=== PATIENT | female | born 1975 | race Caucasian/White ===

== ENCOUNTER 2024-04-22 10:04 | Emergency (ER) | payer BC ==
[2024-04-22] MEDS ORDERED: NA CHLORIDE 0.9% 1,000 ML ONE ×2 (10:35→12:15)
[2024-04-22] MEDS ORDERED: ONDANSETRON 4 MG/2 ML VIAL ONE (10:35)
[2024-04-22 10:54] LABS: Specific Gravity 1.028 (1.005-1.030); Urine Bacteria None Seen /HPF (<20); Urine Bilirubin NEGATIVE (Negative); Urine Blood 2+ (Negative); Urine Clarity Turbid (Clear); Urine Color Light-Yellow (Yellow); Urine Culture Reflex Order NOT NEEDED; Urine Glucose NEGATIVE (Negative); Urine Ketones 1+ (Negative); Urine Microscopic Reflex YN ORDER UMIC; Urine Nitrite NEGATIVE (Negative); Urine Protein 1+ (Negative); Urine Urobilinogen Normal (Normal); Urine WBC <5 /HPF (<5)
[2024-04-22] MEDS ORDERED: MORPHINE 4 MG/ML SYR ONE (10:55)
[2024-04-22 10:59] LABS: Absolute Lymphocytes (CBC) 1.1 K/uL (0.7-4.9); Absolute Monocytes 0.9 K/uL (0.1-1.3); Absolute Neutrophil 9.1 K/uL (1.8-8.0); Basophils % 0.3 % (0-1.3); Eosinophils % 0.2 % (0-4.4); Hematocrit 44.3 % (36.0-45.0); Hemoglobin 14.6 g/dL (12.0-15.0); MCH 30.5 pg (27.0-35.0); MCV 92.3 fL (80-100); MPV 7.4 fL (7.6-11.3); Monocytes % 8.4 % (3.3-12.3); Neutrophils % 81.1 % (41.7-73.7); Nucleated Red Blood Cells % 0.1 % (0-0); Platelets 486 thou/uL (152-406); Red Cell Distribution Width 14.4 % (12.1-15.2)
[2024-04-22 11:17] LABS: Albumin/Globulin Ratio 0.9 (1.1-1.8); Anion Gap 10.4 mEq/L (5.0-15.0); Bilirubin Total 0.5 mg/dL (0.2-1.0); Globulin 4.4 g/dL (2.3-3.5); Potassium 3.4 mEq/L (3.5-5.1); Protein, Total 8.4 g/dL (6.4-8.2)
--- NOTE | 2024-04-22 11:20 | RAD REPORT ---
EXAMINATION: CT ABDOMEN AND PELVIS WITHOUT CONTRAST CLINICAL INDICATION: abd pain, recent kidney donation TECHNIQUE: CT abdomen and pelvis was performed, without IV contrast, as per department protocol. Axia l, sagittal and coronal reconstructions were obtained. One or more of the following dose reduction techniques were used: Automated exposure control, adjustment of the mA and kV according to the patien t size, and iterative reconstruction. Unless otherwise specified, incidental findings do not require dedicated imaging follow-up. COMPARISON: No prior exam. FINDINGS: The lack of intravenous contrast limits the sensitivity of this exam for evaluation of solid visceral organs, vascular structures, and retroperitoneum. LOWER CHEST: The visualized lung bases are clear. LIVER:Normal in size and contour. No focal lesion. Grossly unremarkable gallbladder. SPLEEN: Normal size. No focal lesion. PANCREAS: No mass, ductal dilation, or luis-pancreatic fluid. ADRENALS: Normal; no mass. KIDNEYS AND URETERS: Normal size and contour right kidney. No hydronephrosis. Postsurgical changes le ft nephrectomy. URINARY BLADDER: Normal contour. GASTROINTESTINAL TRACT: No evidence of bowel obstruction, significant free fluid, free air or abscess . APPENDIX: Appendix not visualized, but no inflammatory changes in region of appendix. LYMPH NODES: No lymphadenopathy. MUSCULOSKELETAL: No acute or suspicious osseous abnormality. ADDITIONAL FINDINGS: None. IMPRESSION: No acute or concerning abnormalities in the abdomen or pelvis, with evaluation limited by lack of IV contrast.
[2024-04-22] MEDS ORDERED: PROMETHAZINE INJ 25 MG/ML AMP ONE ×2 (11:39→13:38)
--- NOTE | 2024-04-22 13:47 | EDPHYS ---
Physician Documentation [facility] Name: Rea Hinojosa Age: 49 yrs Sex: Female : 1975 Arrival Date: 04/22/2024 Time: 10:04 Bed 7 Private MD: ED Physician Rajinder Bedoya HPI: 04/22 10:58 This 49 yrs old Female presents to ER via Ambulatory with complaints of Abdominal Pain, rn Vomiting, Dehydrated. 10:58 The patient presents to the emergency department with nausea, vomiting, abdominal pain. rn 10:59 Onset: The symptoms/episode began/occurred 5 day(s) ago. Possible causes: unknown. The rn symptoms are aggravated by nothing. The symptoms are alleviated by nothing. Associated signs and symptoms: Pertinent positives: nausea, vomiting, Pertinent negatives: fever, GI bleeding. Severity of symptoms: At their worst the symptoms were moderate in the emergency department the symptoms are unchanged. The patient has experienced similar episodes in the past. Patient reports lower and left-sided abdominal cramping associated with nausea and vomiting. States just recently had a kidney donation surgery, was doing okay then restarted her Mounjaro. After restarting Mounjaro started having nausea and vomiting with cramping and not able to keep anything down. Patient states this has happened before when she increased her dose of Mounjaro in the past and had to come to the emergency room. No blood in urine or stool. No fever or chills. No known sick contacts.. 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 - Infectious Disease History:: Denies. - Social history:: Smoking status: Patient denies any tobacco usage or history of. - Family history:: not pertinent. - Hospitalizations: : No recent hospitalization is reported. ROS: 10:59 Constitutional: Negative for fever, chills, and weight loss, Cardiovascular: Negative rn for chest pain, palpitations, and edema, Respiratory: Negative for shortness of breath, cough, wheezing, and pleuritic chest pain, Abdomen/GI: Positive for abdominal pain with nausea and vomiting MS/Extremity: Negative for injury and deformity, Skin: Negative for injury, rash, and discoloration, Neuro: Positive for generalized weakness Exam: 10:59 Constitutional: This is a well developed, well nourished patient who is awake, alert, rn and in no acute distress. ENT: Dry mucous membranes Cardiovascular: Regular rate and rhythm. No pulse deficits. Respiratory: No increased work of breathing, no retractions or nasal flaring. Abdomen/GI: Soft, mild left lower quadrant and suprapubic tenderness. No rebound or guarding. No distention Neuro: Awake and alert, GCS 15 Vital Signs: 10:17 BP 150 / 108; Pulse 94; Resp 15; Temp 98.5; Pulse Ox 99% ; Weight 62.6 kg; Height 5 ft. jl7 4 in. ; Pain 5/10; 10:17 Body Mass Index 23.69 (62.60 kg, 162.56 cm) jl7 10:17 Pain Scale: Adult jl7 MDM: 10:06 Medical Screening Exam initiated rn 13:45 Differential diagnosis: Nonspecific abd pain, gastritis, pancreatitis, diverticulitis, rn viral gastroenteritis, gastroenteritis, Adverse effect of Mounjaro. Data reviewed: vital signs, nurses notes, lab test result(s), radiologic studies, CT scan, and as a result, I will discharge patient. Counseling: I had a detailed discussion with the patient and/or guardian regarding the historical points, exam findings, and any diagnostic results supporting the discharge/admit diagnosis, lab results, radiology results, the need for outpatient follow up, to return to the emergency department if symptoms worsen or persist or if there are any questions or concerns that arise at home. Response to treatment: the patient's symptoms have markedly improved after treatment, and as a result, I will discharge patient. Special discussion: I discussed with the patient/guardian in detail that at this point there is no indication for admission to the hospital. It is understood, however, that if the symptoms persist or worsen the patient needs to return immediately for re-evaluation. ED course: No acute findings and workup. CT abdomen pelvis without acute findings. Patient feels much better. Possibly side effects of Mounjaro. Recommend cessation and talking to her doctor for further care.. 04/22 10:19 Order name: CBC with Diff; Complete Time: 11:24 rn 04/22 10:19 Order name: CMP; Complete Time: 11:24 rn 04/22 10:19 Order name: Lipase; Complete Time: 11:24 rn 04/22 10:19 Order name: Urinalysis w/ reflexes; Complete Time: 11:24 rn 04/22 10:42 Order name: Flu rn 04/22 10:42 Order name: CT Abd/Pelvis - Without Contrast; Complete Time: 11:24 rn 04/22 10:19 Order name: IV Saline Lock; Complete Time: 10:49 rn 04/22 10:19 Order name: Labs collected and sent; Complete Time: 10:49 rn Administered Medications: 10:50 Drug: Ondansetron IVP 4 mg IVP once; over 2 minutes Route: IVP; Site: left antecubital; ko1 11:05 Follow up: Response: No adverse reaction ko1 10:50 Drug: NS 0.9% IV 1000 ml IV at 1 bolus Per protocol; to be given as a bolus over 60 ko1 minutes Route: IV; Rate: 1 bolus; Site: left antecubital; 10:55 Drug: morphine IVP or IV 4 mg IVP once over 4 mins Route: IVP; Infused Over: 4 mins; ko1 Site: left antecubital; 11:10 Follow up: Response: No adverse reaction ko1 11:43 Drug: Promethazine IVP 12.5 mg IVP once Route: IVP; Site: left antecubital; ko1 11:58 Follow up: Response: No adverse reaction jl7 12:17 Drug: NS 0.9% IV 1000 ml IV at 1000 ml once; to be given as a bolus over 60 minutes hb Route: IV; Rate: 1000 ml; Site: left antecubital; 13:45 Drug: Promethazine IVP 12.5 mg IVP once Route: IVP; Site: left antecubital; hb Disposition Summary: 04/22/24 13:47 Discharge Ordered Notes: Location: Home rn Problem: new rn Symptoms: have improved rn Condition: Stable rn Diagnosis - Vomiting rn - Dehydration rn Followup: rn - With: Private Physician - When: As needed - Reason: Recheck today's complaints, Re-evaluation by your physician Discharge Instructions: - Discharge Summary Sheet rn - Dehydration, Adult rn - Vomiting, Adult rn Forms: - Medication Reconciliation Form rn - 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 EDMS EDMS 10:42 10:42 Abdomen Pelvis Wo Con+CT.RAD.BRZ ordered. EDMS EDMS
--- NOTE | 2024-04-22 13:47 | ER ---
Nurse's Notes [facility] Name: Rea Hinojosa Age: 49 yrs Sex: Female : 1975 Arrival Date: 04/22/2024 Time: 10:04 Bed 7 Private MD: Diagnosis: Vomiting;Dehydration Presentation: 04/22 10:17 Chief complaint: Patient states: Epigastric and lower abd pain; N/V and ZIMMER x 5 days. jl7 Started Mounjaro 5 days ago, donated Left kidney on 04/01/24. Coronavirus screen: At this time, the client does not indicate any symptoms associated with coronavirus-19. Ebola Screen: No symptoms or risks identified at this time. Initial Sepsis Screen: Does the patient meet any 2 criteria? No. Patient's initial sepsis screen is negative. Does the patient have a suspected source of infection? No. Patient's initial sepsis screen is negative. Risk Assessment: Do you want to hurt yourself or someone else? Patient reports no desire to harm self or others. Onset of symptoms was April 18, 2024. 10:17 Method Of Arrival: Ambulatory [facility] 10:17 Acuity: SHERMAN 3 jl7 Triage Assessment: 10:19 General: Appears in no apparent distress. uncomfortable, ill, Behavior is calm, jl7 cooperative, appropriate for age. Pain: Complains of pain in epigastric area, right lower quadrant and left lower quadrant Pain currently is 5 out of 10 on a pain scale. GI: Reports nausea, vomiting. 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 - Infectious Disease History:: Denies. - Social history:: Smoking status: Patient denies any tobacco usage or history of. - Family history:: not pertinent. - Hospitalizations: : No recent hospitalization is reported. Screenin:25 [facility] ED Fall Risk Assessment (Adult) History of falling in the last 3 months, ko1 including since admission No falls in past 3 months (0 pts) Confusion or Disorientation No (0 pts) Intoxicated or Sedated No (0 pts) Impaired Gait No (0 pts) Mobility Assist Device Used No (0 pt) Altered Elimination No (0 pt) Score/Fall Risk Level 0 - 2 = Low Risk Oriented to surroundings, Maintained a safe environment, Educated pt \T\ family on fall prevention, incl call for assistance when getting out of bed, Assessed \T\ reinforced patient's understanding of fall precautions, Hourly rounding (assess needs \T\ fall precautionary measures) done. Abuse screen: Denies threats or abuse. Denies injuries from another. Nutritional screening: No deficits noted. Tuberculosis screening: No symptoms or risk factors identified. Assessment: 10:25 General: Appears uncomfortable, ill, Behavior is calm, cooperative, appropriate for ko1 age. Pain: Complains of pain in epigastric area. Neuro: No deficits noted. Cardiovascular: No deficits noted. Respiratory: No deficits noted. GI: Bowel sounds present X 4 quads. Abd is soft and non tender X 4 quads. GI: Reports upper abdominal pain, nausea, vomiting. : No deficits noted. No signs and/or symptoms were reported regarding the genitourinary system. EENT: No deficits noted. No signs and/or symptoms were reported regarding the EENT system. Derm: No deficits noted. No signs and/or symptoms reported regarding the dermatologic system. Musculoskeletal: No deficits noted. No signs and/or symptoms reported regarding the musculoskeletal system. 13:40 Reassessment: Patient appears in no apparent distress at this time. Patient is hb alert/active/playful, equal unlabored respirations, skin warm/dry/pink. Patient states feeling better. Patient states symptoms have improved. Vital Signs: 10:17 BP 150 / 108; Pulse 94; Resp 15; Temp 98.5; Pulse Ox 99% ; Weight 62.6 kg; Height 5 ft. jl7 4 in. ; Pain 5/10; 10:17 Body Mass Index 23.69 (62.60 kg, 162.56 cm) jl7 10:17 Pain Scale: Adult jl7 ED Course: 10:06 Patient arrived in ED. mr 10:06 Rajinder Bedoya MD is Attending Physician. rn 10:19 Triage completed. jl7 10:19 Arm band placed on right wrist. jl7 10:25 Patient has correct armband on for positive identification. Allergy band placed. Bed in ko1 low position. Call light in reach. Side rails up X 1. Provided Education on: lab. Pulse ox on. NIBP on. Door closed. Noise minimized. Lights dimmed. Warm blanket given. Pillow given. Assisted to bathroom. 10:27 Gilma Pool, RN is Primary Nurse. ko1 10:41 Urinalysis w/ reflexes Sent. ko1 10:41 Urine collected: clean catch specimen, clear. ko1 10:49 CBC with Diff Sent. ko1 10:49 CMP Sent. ko1 10:50 Lipase Sent. ko1 10:50 No provider procedures requiring assistance completed. Initial lab(s) drawn, by me, ko1 sent to lab. Flu and/or RSV swab sent to lab. Inserted saline lock: 20 gauge in left antecubital area, using aseptic technique. Blood collected. Flushed with 10 mL NS. 11:14 CT Abd/Pelvis - Without Contrast In Process Unspecified. EDMS Administered Medications: 10:50 Drug: Ondansetron IVP 4 mg IVP once; over 2 minutes Route: IVP; Site: left antecubital; ko1 11:05 Follow up: Response: No adverse reaction ko1 10:50 Drug: NS 0.9% IV 1000 ml IV at 1 bolus Per protocol; to be given as a bolus over 60 ko1 minutes Route: IV; Rate: 1 bolus; Site: left antecubital; 10:55 Drug: morphine IVP or IV 4 mg IVP once over 4 mins Route: IVP; Infused Over: 4 mins; ko1 Site: left antecubital; 11:10 Follow up: Response: No adverse reaction ko1 11:43 Drug: Promethazine IVP 12.5 mg IVP once Route: IVP; Site: left antecubital; ko1 11:58 Follow up: Response: No adverse reaction jl7 12:17 Drug: NS 0.9% IV 1000 ml IV at 1000 ml once; to be given as a bolus over 60 minutes hb Route: IV; Rate: 1000 ml; Site: left antecubital; 13:45 Drug: Promethazine IVP 12.5 mg IVP once Route: IVP; Site: left antecubital; hb Medication: 10:25 VIS not applicable for this client. ko1 Outcome: 13:47 Discharge ordered by . rn 14:01 Patient left the ED. Signatures: Dispatcher [employer] EDMS Carmenza Brice Reg Reg mr Rajinder Bedoya MD MD rn Baxter, Heather, RN RN Tony Noble RN RN jl7 Gilma Pool RN RN ko1
[2024-04-22 16:06] VITALS: BP 150/108; TEMP 98.5; O2SAT 99
== END 2024-04-22 14:01 | disposition home or self-care (01) ==
LOC: ER 10:04
DX: R11.2 Nausea with vomiting, unspecified (principal); E86.0 Dehydration; R10.9 Unspecified abdominal pain; E03.9 Hypothyroidism, unspecified; I10 Essential (primary) hypertension
CPT/HCPCS: 85025; 81001; 36415; 83690; 80053; 87804 ×2; 74176; 96375; 96374; 99284; J2550 ×2; J2405; J7030 ×2

== ENCOUNTER 2024-06-28 10:48 | Day surgery (SDC) | payer BC ==
[2024-06-27 14:39] LABS: Specific Gravity 1.012 (1.005-1.030)
[2024-06-27 14:41] LABS: Absolute Eosinophils 0.2 K/uL (0-0.5); Absolute Lymphocytes (CBC) 2.4 K/uL (0.7-4.9); Absolute Monocytes 0.9 K/uL (0.1-1.3); Absolute Neutrophil 4.7 K/uL (1.8-8.0); Basophils % 0.6 % (0-1.3); Eosinophils % 2.6 % (0-4.4); Hematocrit 43.4 % (36.0-45.0); Hemoglobin 14.5 g/dL (12.0-15.0); MCH 31.3 pg (27.0-35.0); MCHC 33.4 g/dL (32.0-36.0); MCV 93.5 fL (80-100); MPV 7.8 fL (7.6-11.3); Monocytes % 10.6 % (3.3-12.3); Neutrophils % 57.2 % (41.7-73.7); Nucleated Red Blood Cells % 0.1 % (0-0); Platelets 406 thou/uL (152-406); RBC Red Blood Cell Count 4.64 M/uL (3.86-4.86); Red Cell Distribution Width 14.4 % (12.1-15.2)
[2024-06-27 15:01] LABS: Anion Gap 7.2 mEq/L (5.0-15.0); Potassium 3.2 mEq/L (3.5-5.1)
[2024-06-28] MEDS ORDERED: Ringers Lactate 1,000 ML IV ONE (10:50)
[2024-06-28] MEDS ORDERED: MIDAZOLAM HCL 2 MG/2 ML INJ ONE (13:15)
[2024-06-28] MEDS: CEFAZOLIN SODIUM 2 GM/VIAL ONE (13:24)
[2024-06-28] MEDS: Ringers Lactate 1,000 ML IV ONE (13:24)
[2024-06-28] MEDS ORDERED: LIDOCAINE 2% MPF 5 ML VIAL ONE (13:26)
[2024-06-28] MEDS ORDERED: ONDANSETRON 4 MG/2 ML VIAL ONE (13:26)
[2024-06-28] MEDS ORDERED: FENTANYL CITR 100 MCG/2 ML ONE (13:26)
[2024-06-28] MEDS ORDERED: dexAMETHasone 10 MG/ML VIAL ONE (13:34)
[2024-06-28] MEDS ORDERED: EPHEDRINE SULF 50 MG/ML VIAL ONE (13:34)
[2024-06-28] MEDS: LIDOCAINE HCL/EPINEPHRINE 20 ML MDV ONE (13:45)
--- NOTE | 2024-06-28 13:52 | P.OP ---
Preoperative diagnosis: Posterior Neck Cyst Postoperative diagnosis: Posterior Neck Cyst Primary procedure: Excision of Posterior Neck Cyst Anesthesia: GETA + Local Estimated blood loss: <5cc Specimen: Posterior Neck Cyst Findings: ~ 2cm round posterior neck cyst Complications: None Transferred to: Recovery Room Condition: Good
[2024-06-28] MEDS ORDERED: propofoL 200 MG/20 ML VIAL IV ONE (13:55)
[2024-06-28] MEDS ORDERED: GLYCOPYRROLATE 0.2 MG/ML SYR ONE (13:58)
[2024-06-28 14:32] VITALS: O2SAT 97
--- NOTE | 2024-06-28 15:02 | OP ---
Date of Procedure: 06/28/2024 Surgeon: Jose Cruz Sharp MD, Preoperative Diagnosis: Posterior neck cyst. Postoperative Diagnosis: Posterior neck cyst. Procedure Performed: Excision of posterior neck cyst. Anesthesia: General endotracheal plus 1% lidocaine with epinephrine. Estimated Blood Loss: Less than 5 cc. Specimen: Posterior neck cyst. Findings: right posterior neck cyst. Complication: None. Disposition: The patient transferred to recovery room in good condition. Procedure In Detail: After informed consent was obtained, the patient was brought to the operating r oom, prepped and draped in the usual sterile fashion. After adequate anesthesia was achieved, I anes thetized the area of the posterior neck in a linear fashion following the Justin lines. I then made an elliptical incision circumferentially around the area of nidus, which was feeding likely sebaceous cyst of posterior neck which was approximately 2 cm in size. Using electrocautery, we dissected cir cumferentially around and removed in its entirety, sent it off for pathologic examination. The area was copiously irrigated and hemostasis achieved with minimal electrocautery and then closed the incis ion using a deep dermal 3-0 Vicryl sutures. Skin was closed with 4-0 Monocryl in a running fashion. Dermabond placed over top. The patient tolerated the procedure without incident or complication, transferred to PACU in good condition. All counts were c orrect at the end of the case. COLETTE/HUI Voice ID: [id number] Report ID: [id number]
[2024-06-28 15:42] VITALS: BP 112/73; TEMP 97
--- NOTE | 2024-07-02 11:22 | EKG ---
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
== END 2024-06-28 15:35 | disposition home or self-care (01) ==
LOC: OR 10:48
PROVIDERS: ATTEND Surgery
PROC: 0JB40ZZ Excision of Right Neck Subcutaneous Tissue and Fascia, Open Approach (ICD-10-PCS; 2024-06-28)
PROC: 0JB50ZZ Excision of Left Neck Subcutaneous Tissue and Fascia, Open Approach (ICD-10-PCS; principal; 2024-06-28 13:30)
DX: L72.0 Epidermal cyst (principal)
CPT/HCPCS: 11422; 93005; 85025; 80048; 36415; 81025; 88304; J2704; J2003; J2250; J3010; J1100; J2405; J7120 ×2; 88305